=== PATIENT | female | born 1980 | race American Indian/Alaskan Native ===

== ENCOUNTER 2018-12-27 21:17 | Observation (INO) | payer MEDICAID ==
[2018-12-27] MEDS ORDERED: TYLENOL PO ONE (22:25)
[2018-12-27] MEDS ORDERED: TYLENOL ONE (22:29)
[2018-12-27 22:58] LABS: Basophils % (Auto) 0.2 % (0.0-1.8); Eosinophils # (Auto) 0.2 K/mm3 (0.0-0.4); Eosinophils % (Auto) 2.1 % (0.0-4.3); Hematocrit 33.2 % (30.3-42.9); Hemoglobin 11.1 gm/dl (10.1-14.3); Lymphocytes # (Auto) 2.2 K/mm3 (1.2-5.4); Lymphocytes % (Auto) 20.2 % (13.4-35.0); Mean Corpuscular HGB Conc 34 % (30-34); Mean Corpuscular Volume 87 fl (79-97); Monocytes # (Auto) 0.5 K/mm3 (0.0-0.8); Monocytes % (Auto) 4.7 % (0.0-7.3); Platelet Count 432 K/mm3 (140-440); Red Blood Count 3.81 M/mm3 (3.65-5.03)
[2018-12-27 23:18] LABS: BUN/Creatinine Ratio 7; Blood Urea Nitrogen 5 mg/dL (7-17); Calcium 9.5 mg/dL (8.4-10.2); Hemolysis Index 0
[2018-12-28] MEDS ORDERED: NACL 0.9% 500 ML 500 ML IV ONE (00:05)
[2018-12-28] MEDS ORDERED: NORMODYNE IV ONE (00:06)
[2018-12-28 00:31] LABS: Alanine Aminotransferase 418 units/L (7-56); Albumin 3.4 g/dL (3.9-5)
[2018-12-28 00:51] LABS: Bilirubin,Direct < 0.2 mg/dL (0-0.2)
[2018-12-28 00:57] LABS: Amorphous Crystals,Urine 1+; Bilirubin,Urine NEG (Negative); Blood,Urine SM (Negative); Color,Urine Yellow (Yellow); Mucus,Urine FEW /HPF; Protein,Urine <15 mg/dL mg/dL (Negative); Urobilinogen,Urine < 2.0 mg/dL (<2.0)
--- NOTE | 2018-12-28 01:40 | Ultrasound Report ---
FINAL REPORT EXAM: US ABDOMEN LIMITED HISTORY: abd pain, elevated LFTs TECHNIQUE: Real-time sonography was performed of the right upper quadrant and images are submitted f or interpretation. PRIORS: None. FINDINGS: There is diffuse increased echogenicity of the liver consistent fatty infiltration. There is echogeni c material in the gallbladder most consistent with stones and sludge. There is no gallbladder wall th ickening or pericholecystic fluid. There is no evidence of biliary dilatation, the common bile duct m easures 4 millimeters. The pancreas is not well seen. The visualized abdominal aorta appears normal. The right kidney appears normal in size, shape and echogenicity, measuring 10.5 x 5.3 x 6.1 cm. IMPRESSION: Gallbladder stones and sludge. No evidence of acute cholecystitis Diffuse fatty infiltration of the liver.
--- NOTE | 2018-12-28 02:00 | Emergency Department Report ---
HPI - General Chief Complaint: Headache Time Seen by Provider: 12/27/18 23:58 - HPI HPI: 48-year-old female presents to the emergency department with a complaint of a headache that has been going on since waking up this morning. It is associated with some nausea without vomiting. The patient is currently admitted with twin gestations at about 18 weeks. Her RECRUITING COORDINATOR is Dr. Ruperto Conde. The patient took some Tylenol for her symptoms without any relief. She denies any vision change, slurred speech or any neurological deficits. She has a past medical history of diabetes and hypertension that occurred during pregnancies. She also has a history of gallstones. She denies any vaginal bleeding or discharge, dysuria, fever. ED Past Medical Hx - Past Medical History Hx Hypertension: Yes (Only with ) Hx Diabetes: Yes (only with ) - Surgical History Additional Surgical History: x 2 - Social History Smoking Status: Current Some Day Smoker Substance Use Type: None - Medications Home Medications: Home Medications Medication Instructions Recorded Confirmed Last Taken Type Pnv95/Ferrous Fumarate/FA 1 each PO QDAY #90 tablet 05/01/14 05/23/14 05/20/14 Rx [ Vitamins] ALBUTEROL Inhaler (OR & NICU) 2 puff IH QID PRN #1 inhalation 05/23/14 Unknown Rx [ProAir HFA Inhaler] Azithromycin [Zithromax Z-BLAKE] 250 mg PO DAILY #6 tablet 05/23/14 Unknown Rx Fluticasone [Flonase] 1 spray NS QDAY #1 bottle 05/23/14 Unknown Rx ED Review of Systems ROS: Stated complaint: HEADACHE/18WKS Other details as noted in HPI Comment: All other systems reviewed and negative Constitutional: denies: chills, fever Eyes: denies: eye pain, vision change ENT: denies: ear pain, throat pain Respiratory: denies: cough, shortness of breath Cardiovascular: denies: chest pain, palpitations Gastrointestinal: abdominal pain, nausea. denies: vomiting Genitourinary: denies: dysuria, discharge Musculoskeletal: denies: back pain, arthralgia Skin: denies: rash, change in color Neurological: headache. denies: weakness, numbness Physical Exam - Physical Exam Vital Signs: Vital Signs 12/27/18 12/28/18 12/28/18 22:12 00:47 01:20 Temperature 99.1 F Pulse Rate 105 H 97 H Respiratory 16 15 16 Rate Blood Pressure 154/101 Blood Pressure 129/82 135/86 [Right] O2 Sat by Pulse 100 98 98 Oximetry Physical Exam: GENERAL: The patient is well-developed well-nourished. HEENT: Normocephalic. Atraumatic. Patient has moist mucous membranes. EYES: Extraocular motions are intact. Pupils are equal and reactive to light bilaterally. NECK: Supple. Trachea is midline. CHEST/LUNGS: Clear to auscultation. There is no respiratory distress noted. HEART/CARDIOVASCULAR: Regular. There is no tachycardia. There is no obvious murmur. ABDOMEN: Abdomen is soft, nontender. Patient has normal bowel sounds. Obese habitus. SKIN: Skin is warm and dry. NEURO: The patient is awake, alert, and oriented. The patient is cooperative. The patient has no focal neurologic deficits. The patient has normal speech. Cranial nerves II through XII grossly intact. MUSCULOSKELETAL: There is no tenderness or deformity. There is no limitation range of motion. There is no evidence of acute injury. ED Course Vital Signs 12/27/18 12/28/18 12/28/18 22:12 00:47 01:20 Temperature 99.1 F Pulse Rate 105 H 97 H Respiratory 16 15 16 Rate Blood Pressure 154/101 Blood Pressure 129/82 135/86 [Right] O2 Sat by Pulse 100 98 98 Oximetry - Consultations Consultation #1: 12/28/18 02:06 I spoke with the patient's RECRUITING COORDINATOR, Dr. Harshal Conde, regarding the patient's presentation for headache, her hypertension, and the elevated liver enzymes. He has asked the patient to be transferred to labor and delivery for further evaluation. ED Medical Decision Making - Lab Data Result diagrams: 12/27/18 22:39 12/27/18 22:39 - Radiology Data Radiology results: report reviewed Abdominal ultrasound shows gallstones and sludge in the gallbladder. There is fatty liver disease. - Medical Decision Making This patient is with twin gestations and presents with an acute headache since this morning. On physical examination she does not have any focal, motor or sensory deficits in her cranial nerves are intact. Patient's labs are mostly unremarkable except for elevated liver enzymes with AST of about 250 and ALT of 450. For this reason an abdominal ultrasound was done and came back showing some gallbladder sludge without cholecystitis and fatty liver disease. Patient does not have any thrombocytopenia, proteinuria, complaints of lower extremity edema. She was given a dose of labetalol and her blood pressure came down to a much more reasonable level. I spoke with the patient's RECRUITING COORDINATOR, Dr. Conde, who has requested the patient be transferred over to labor and delivery for further evaluation. - Differential Diagnosis tension headache, migraine, preeclampsia, help syndrome Critical Care Time: No Critical care attestation.: If time is entered above; I have spent that time in minutes in the direct care of this critically ill patient, excluding procedure time. ED Disposition Clinical Impression: Elevated liver enzymes Qualifiers: Weeks of gestation: 18 weeks Qualified Code(s): Z3A.18 - 18 weeks gestation of induced hypertension Qualifiers: Trimester: second trimester Qualified Code(s): O13.2 - Gestational [- induced] hypertension without significant proteinuria, second trimester Headache Qualifiers: Headache type: unspecified Headache chronicity pattern: unspecified pattern Intractability: not intractable Qualified Code(s): R51 - Headache Disposition: DC/TX-70 ANOTHER TYPE HLTHCARE Is pt being admited?: No Condition: Stable Instructions: (ED), Pre-eclampsia and Eclampsia (ED), Acute Headache (ED), Hypertension (ED) Referrals: RUPERTO CONDE MD [Staff Physician] - [facility] Time of Disposition: 02:00
[2018-12-28] MEDS ORDERED: TYLENOL PO PRN (03:39)
[2018-12-28] MEDS ORDERED: COLACE PO PRN (03:39)
[2018-12-28] MEDS: NORMODYNE PO SCH ×3 (04:58→22:17)
[2018-12-28] MEDS: LACTATED RINGERS 1,000 ML IV SCH ×3 (05:28→23:34)
[2018-12-28 06:59] LABS: Hepatitis C Virus Antibody Non-Reactive (NonReactive)
[2018-12-28] MEDS ORDERED: PRENATAL VITAMIN PO SCH (10:00)
[2018-12-28 14:18] LABS: Alanine Aminotransferase 364 units/L (7-56)
--- NOTE | 2018-12-28 16:59 | Short Stay Summary ---
Short Stay Documentation Date of service: 12/28/18 Narrative H&P: Pt is a 38-year-old female who presented to the emergency department with a complaint of a headache that has been going on since waking up this morning. It is associated with some nausea without vomiting. The patient is currently with twin gestations at about 18 weeks. Her PUMP OPERATOR [employer] is Dr. Ruperto Conde. She took some Tylenol for her symptoms without any relief. She denies any vision change, slurred speech or any neurological deficits. She has a past medical history of diabetes and hypertension that occurred during pregnancies. She also has a history of gallstones. She denies any vaginal bleeding or discharge, dysuria, fever. Initial BP was 154/101 which improved after IV hydralazine and PO Labetolol. However AST was 236 and ALT 418. - History Principal diagnosis: IUP @ 18 weeks; Twin gestation; Suspected PIH Past Medical History: other (gallstones) Past Surgical History: No surgical history Social history: no significant social history, - Allergies and Medications Current Medications: Allergies No Known Allergies Allergy (Verified 05/23/14 02:18) Home Medications Medication Instructions Recorded Confirmed Last Taken Type Pnv95/Ferrous Fumarate/FA 1 each PO QDAY #90 tablet 05/01/14 12/28/18 12/27/18 10:00 Rx [ Vitamins] ALBUTEROL Inhaler (OR & NICU) 2 puff IH QID PRN #1 inhalation 05/23/14 12/28/18 Unknown Rx [ProAir HFA Inhaler] Azithromycin [Zithromax Z-BLAKE] 250 mg PO DAILY #6 tablet 05/23/14 12/28/18 Unknown Rx Fluticasone [Flonase] 1 spray NS QDAY #1 bottle 05/23/14 12/28/18 Unknown Rx Active Medications Acetaminophen (Tylenol) 650 mg PO Q4H PRN PRN Reason: Pain MILD(1-3)/Fever >100.5/HASTINGS Docusate Sodium (Colace) 100 mg PO Q12H PRN PRN Reason: Constipation Lactated Ringer's (Lactated Ringers) 1,000 mls @ 125 mls/hr IV DIRECT KAREN Last Admin: 12/28/18 15:53 Dose: 125 mls/hr Documented by: Labetalol HCl (Normodyne) 200 mg PO BID [facility] Last Admin: 12/28/18 12:11 Dose: Not Given Documented by: Multivitamins/Iron/Calcium ( Vitamin) 1 each PO QDAY [facility] Last Admin: 12/28/18 13:01 Dose: 1 each Documented by: - Physical exam General appearance: no acute distress Integumentary: no rash HEENT: Atraumatic Lungs: Clear to auscultation Breasts: deferred Heart: Regular rate Gastrointestinal: normal Female Genitourinary: deferred Rectal Exam: deferred Extremities: No edema Neurological: Normal gait, Normal speech - Hospital course Hospital course: Unremarkable. Pt's BP improved on PO Labetolol 100mg BID and AST/ALT decreased to 201/364. Pt however signed out AMA. - Disposition Condition at discharge: Stable Disposition: DC-07 LEFT AGAINST MED ADVICE - Discharge Diagnoses (1) 18 weeks gestation of Status: Acute (2) Elevated liver enzymes Status: Acute (3) induced hypertension Status: Acute Qualifiers: Trimester: second trimester Qualified Code(s): O13.2 - Gestational [-induced] hypertension without significant proteinuria, second trimester Short Stay Discharge Plan Activity: no restrictions Diet: regular Follow up with: RUPERTO CONDE MD [Primary Care Provider] - [facility]
--- NOTE | 2018-12-28 23:55 | Ultrasound Report ---
FINAL REPORT EXAM: OB US > = 14 WKS SNGL FETUS HISTORY: PTL TECHNIQUE: Real-time sonography was performed of the gravid uterus and images are submitted for inte rpretation. PRIORS: None. FINDINGS: There is a twin in the uterus. The placenta is posterior and the os is clear. There is a no rmal amount of amniotic fluid. The cervix is long and closed measuring 3.9 cm. Twin A: Twin A is transverse with the head to the mother's left. The heart is beating at a rate of 160 beats per minute. estimated gestational age based on biometric measurements is 18 weeks 3 days for an estimated confinement of 05/28/2019. Twin B: Twin B is in a transverse presentation with the head to the mother's right. The heart is beatin g at a rate of 145 beats per minute. estimated gestational age based on biometric measurements is 18 weeks 5 days for an estimated date of confinement of 05/26/2019. IMPRESSION: Live twin as described above
--- NOTE | 2018-12-28 23:56 | Ultrasound Report ---
FINAL REPORT EXAM: US OB > = 14 WK FETUS ADD GEST HISTORY: Twin gestation TECHNIQUE: Real-time sonography was performed of the gravid uterus and images are submitted for inte rpretation. PRIORS: None. FINDINGS: There is a twin in the uterus. The placenta is posterior and the os is clear. There is a no rmal amount of amniotic fluid. The cervix is long and closed measuring 3.9 cm. Twin A: Twin A is transverse with the head to the mother's left. The heart is beating at a rate of 160 beats per minute. estimated gestational age based on biometric measurements is 18 weeks 3 days for an estimated confinement of 05/28/2019. Twin B: Twin B is in a transverse presentation with the head to the mother's right. The heart is beatin g at a rate of 145 beats per minute. estimated gestational age based on biometric measurements is 18 weeks 5 days for an estimated date of confinement of 05/26/2019. IMPRESSION: Live twin as described above
[2018-12-29 09:18] VITALS: BP 119/82
[2018-12-29] MEDS ORDERED: NORMODYNE PO SCH (10:00)
== END 2018-12-29 09:30 | disposition left against medical advice (07) ==
LOC: ED 21:17 → TRG 12-28 02:33 → OB 12-28 04:21
PROVIDERS: ADMIT Obstetrics & Gynecology; ATTEND Obstetrics & Gynecology
DX: O13.2 Gestational [pregnancy-induced] hypertension without significant proteinuria, second trimester (principal); O24.429 Gestational diabetes mellitus in childbirth, unspecified control; O26.892 Other specified pregnancy related conditions, second trimester; R51 Headache; O99.332 Smoking (tobacco) complicating pregnancy, second trimester; F17.200 Nicotine dependence, unspecified, uncomplicated; Z3A.18 18 weeks gestation of pregnancy
CPT/HCPCS: 36415; 76705; 76801; 76810; 80048; 80076; 81001; 82962; 84450; 84460; 84702; 85025; 86706; 86762; 86803; 87806; 96374; 99284; G0378; J7040; J7120; 76805

== ENCOUNTER 2019-02-05 17:22 | Outpatient (CLI) | payer MEDICAID ==
--- NOTE | 2019-02-06 12:15 | Ultrasound Report ---
Sonogram right upper quadrant: History: Gallstones. Findings: Aortic diameter 2.3 cm. Normal liver. No intrahepatic or extrahepatic duct dilatation. Common bile duct diameter 2 mm. Gallbladder wall thickness 2.1 mm. No definite calculi identified within the gallbladder. There is thick bile or sludge. No pericholecystic fluid. Right kidney 10.4 x 4.8 x 6.1 cm. Cortical thickness is 1.6 cm. Pancreas not visualized and obscured by bowel gas. Impression: Essentially negative sonogram right upper quadrant.
== END 2019-02-05 17:23 | disposition home or self-care (01) ==
LOC: US 17:22
PROVIDERS: ATTEND Obstetrics & Gynecology
DX: K80.32 Calculus of bile duct with acute cholangitis without obstruction (principal); I10 Essential (primary) hypertension
CPT/HCPCS: 76705

== ENCOUNTER 2019-03-10 17:10 | Outpatient (CLI) | payer MEDICAID ==
[2019-03-10] MEDS ORDERED: LACTATED RINGERS 500 ML IV ONE (18:14)
[2019-03-10 18:50] VITALS: BP 134/82
[2019-03-10 19:43] LABS: Bacteria,Urine 1+ /HPF (Negative); Bilirubin,Urine NEG (Negative); Blood,Urine SM (Negative); Color,Urine Yellow (Yellow); Mucus,Urine 2+ /HPF; Urobilinogen,Urine < 2.0 mg/dL (<2.0)
== END 2019-03-10 19:44 | disposition home or self-care (01) ==
LOC: TRG 17:10
PROVIDERS: ATTEND Obstetrics & Gynecology
DX: O47.03 False labor before 37 completed weeks of gestation, third trimester (principal); O99.513 Diseases of the respiratory system complicating pregnancy, third trimester; O13.3 Gestational [pregnancy-induced] hypertension without significant proteinuria, third trimester; O24.419 Gestational diabetes mellitus in pregnancy, unspecified control; J45.909 Unspecified asthma, uncomplicated; Z3A.28 28 weeks gestation of pregnancy
CPT/HCPCS: 59025; 81001

== ENCOUNTER 2019-04-18 16:20 | Outpatient (CLI) | payer MEDICAID ==
[2019-04-18] MEDS ORDERED: LACTATED RINGERS 1,000 ML ONE (18:12)
--- NOTE | 2019-04-18 18:43 | History and Physical Report ---
History of Present Illness Date of examination: 04/18/19 Date of admission: 04/18/2019 Chief complaint: Contractions at 33+6wks twin gestation. History of present illness: 33+6wks Twin gestation. x3 prior c/sections. Past History Past Medical History: asthma Past Surgical History: section (x3) Social history: no significant social history, , smoking - Obstetrical History Expected Date of Delivery: 05/31/19 Actual Gestation: 33 Week(s) 6 Day(s) : 8 Para: 5 Hx # Term Pregnancies: 5 Induced : 2 Medications and Allergies Allergies Allergy/AdvReac Type Severity Reaction Status Date / Time No Known Allergies Allergy Verified 05/23/14 02:18 Home Medications Medication Instructions Recorded Confirmed Last Taken Type Pnv95/Ferrous Fumarate/FA 1 each PO QDAY #90 tablet 05/01/14 12/28/18 12/27/18 10:00 Rx [ Vitamins] ALBUTEROL Inhaler (OR & NICU) 2 puff IH QID PRN #1 inhalation 05/23/14 12/28/18 Unknown Rx [ProAir HFA Inhaler] Azithromycin [Zithromax Z-BLAKE] 250 mg PO DAILY #6 tablet 05/23/14 12/28/18 Unknown Rx Fluticasone [Flonase] 1 spray NS QDAY #1 bottle 05/23/14 12/28/18 Unknown Rx Active Meds: Active Medications Lactated Ringer's (Lactated Ringers) 1,000 mls @ 125 mls/hr IV DIRECT KAREN - Vital Signs Vital signs: Vital Signs Pulse BP 104 H 130/83 04/18/19 17:21 04/18/19 17:21 Temp Pulse Resp BP Pulse Ox 97 F L 104 H 18 130/83 04/18/19 17:24 04/18/19 17:21 04/18/19 17:24 04/18/19 17:21 - Physical Exam Breasts: Positive: deferred Cardiovascular: Regular rate Lungs: Positive: Clear to auscultation Abdomen: Positive: distention Genitourinary (Female): Positive: normal external genitalia, normal perenium. Negative: perineal/vulvar lesions Vulva: both: normal Vagina: Positive: normal moisture. Negative: discharge Cervix: Negative: lesion, discharge Uterus: Positive: enlarged, other (Consisitent with twin gestation at 33+6wks.) Extremities: - Obstetrical FHR: category 1 Uterine Contraction Monitor Mode: External Cervical Dilatation: 1 Cervical Effacement Percentage: 80 station: 0 Uterine Contraction Frequency (min): 4 Uterine Contraction Pattern: Regular Uterine Contraction Intensity: Moderate Results All other labs normal. Assessment and Plan Spoke with C.MD Heraclio and he recommended MgSO4 x24 hrs if stable. If no progression with cervical change after MgSO4 to observe . MgSO4 is in addition to Celestone, IV Ampicillin, NPO. Urine and GBS cultures were ordered. Pediatricians notified. Dr. Pryor said he will see the patient in the morning. - Patient Problems (1) Twin gestation with eighth Current Visit: Yes Status: Acute (2) Current Visit: No Status: Acute Qualifiers: Weeks of gestation: 18 weeks Qualified Code(s): Z3A.18 - 18 weeks gestation of (3) uterine contractions in third trimester, antepartum Current Visit: Yes Status: Acute (4) Gestational diabetes mellitus Current Visit: Yes Status: Acute
[2019-04-18] MEDS ORDERED: LACTATED RINGERS 1,000 ML IV SCH (19:00)
[2019-04-18] MEDS ORDERED: AMPICILLIN/NS 2 GM/100 ML 2 GM/100 ML BAG IV ONE (19:19)
[2019-04-18 21:39] LABS: Basophils # (Auto) 0.1 K/mm3 (0.0-0.1); Basophils % (Auto) 0.6 % (0.0-1.8); Eosinophils # (Auto) 0.2 K/mm3 (0.0-0.4); Eosinophils % (Auto) 1.8 % (0.0-4.3); Hematocrit 32.1 % (30.3-42.9); Hemoglobin 10.4 gm/dl (10.1-14.3); Lymphocytes # (Auto) 2.4 K/mm3 (1.2-5.4); Lymphocytes % (Auto) 23.6 % (13.4-35.0); Mean Corpuscular HGB Conc 33 % (30-34); Mean Corpuscular Volume 85 fl (79-97); Monocytes # (Auto) 0.6 K/mm3 (0.0-0.8); Monocytes % (Auto) 5.9 % (0.0-7.3); Platelet Count 454 K/mm3 (140-440); Red Blood Count 3.76 M/mm3 (3.65-5.03); Red Cell Distribution Width 16.5 % (13.2-15.2)
[2019-04-18] MEDS ORDERED: MAGNESIUM SULFATE 4GM/100ML 4 GM/100 ML BAG IV ONE (21:54)
[2019-04-18 22:12] LABS: Alanine Aminotransferase 102 units/L (7-56); Albumin 3.2 g/dL (3.9-5); BUN/Creatinine Ratio 8; Blood Urea Nitrogen 6 mg/dL (7-17); Hemolysis Index 0
[2019-04-18] MEDS: CELESTONE SOLUSPAN IM SCH (22:28)
[2019-04-18] MEDS: MAGNESIUM SULFATE 40GM/1000ML 40 GM/1,000 ML BAG IV SCH (22:28)
[2019-04-18 23:06] LABS: Bilirubin,Urine NEG (Negative); Blood,Urine SM (Negative); Color,Urine Yellow (Yellow); Protein,Urine <15 mg/dL mg/dL (Negative); Urobilinogen,Urine < 2.0 mg/dL (<2.0); WBC,Urine < 1.0 /HPF (0.0-6.0)
--- NOTE | 2019-04-19 09:25 | Progress Note ---
Assessment and Plan Spoke with C.MD Heraclio 04/18/2019 and he recommended MgSO4 x24 hrs if stable: If no progression with cervical change after MgSO4 to observe . MgSO4 is in addition to Celestone, IV Ampicillin, NPO. Urine and GBS cultures were ordered. Pediatricians notified. Dr. Pryor said he will see the patient today. There have been no changes in the cervix. Contractions have tailed off. Mother is stable, even if anxious to go home. 2nd dose of steroids and 24 hrs of MgSO4 will be done at 2200HRS +/-. It will be reasonable to observe patient in the hospital after this. If all ok by tomorrow morning, barring countering recs from [facility] I will be ok with allowing patient to go home. - Patient Problems (1) Twin gestation with eighth Current Visit: Yes Status: Acute (2) Current Visit: No Status: Acute Qualifiers: Weeks of gestation: 18 weeks Qualified Code(s): Z3A.18 - 18 weeks gestation of (3) uterine contractions in third trimester, antepartum Current Visit: Yes Status: Acute (4) Gestational diabetes mellitus Current Visit: Yes Status: Acute Subjective - Subjective Date of service: 04/19/19 ( ) Principal diagnosis: Interval history: 34wks Twin gestation. x3 prior c/sections. Patient reports: movement normal, no new complaints, no loss of fluid, no vaginal bleeding, no contractions Objective - Vital Signs Vital Signs: Vital Signs - 12hr 04/18/19 04/18/19 04/18/19 22:03 22:08 22:13 Temperature Pulse Rate 103 H 106 H 110 H Blood Pressure 112/70 122/75 113/73 O2 Sat by Pulse 98 Oximetry 04/18/19 04/18/19 04/18/19 22:18 22:23 22:28 Temperature Pulse Rate 111 H 103 H 110 H Blood Pressure 99/57 99/59 101/54 O2 Sat by Pulse 98 97 98 Oximetry 04/18/19 04/18/19 04/18/19 22:30 22:33 22:34 Temperature 96.9 F L Pulse Rate 99 H 104 H Blood Pressure 112/52 O2 Sat by Pulse 97 Oximetry 04/18/19 04/18/19 04/19/19 22:38 23:35 02:24 Temperature Pulse Rate 96 H 103 H 95 H Blood Pressure 111/62 O2 Sat by Pulse 98 98 Oximetry 04/19/19 04/19/19 04/19/19 02:29 02:34 02:39 Temperature Pulse Rate 95 H 100 H 93 H Blood Pressure O2 Sat by Pulse 96 97 98 Oximetry 04/19/19 04/19/19 04/19/19 03:27 04:25 07:19 Temperature 98 F Pulse Rate 93 H 101 H Blood Pressure 117/68 O2 Sat by Pulse 93 Oximetry 04/19/19 04/19/19 04/19/19 07:20 07:25 08:11 Temperature Pulse Rate 104 H 100 H 97 H Blood Pressure 136/82 131/73 O2 Sat by Pulse 97 Oximetry 04/19/19 04/19/19 04/19/19 08:16 08:21 08:25 Temperature Pulse Rate 109 H 99 H 99 H Blood Pressure 113/71 O2 Sat by Pulse 94 98 Oximetry 04/19/19 04/19/19 04/19/19 08:26 08:31 08:36 Temperature Pulse Rate 99 H 98 H 114 H Blood Pressure O2 Sat by Pulse 98 98 97 Oximetry 04/19/19 04/19/19 04/19/19 08:41 08:46 08:49 Temperature Pulse Rate 108 H 101 H 110 H Blood Pressure O2 Sat by Pulse 99 98 89 Oximetry 04/19/19 04/19/19 04/19/19 08:51 08:56 09:01 Temperature Pulse Rate 116 H 115 H 104 H Blood Pressure O2 Sat by Pulse 100 100 98 Oximetry 04/19/19 04/19/19 04/19/19 09:06 09:07 09:11 Temperature Pulse Rate 105 H 115 H 121 H Blood Pressure O2 Sat by Pulse 100 90 98 Oximetry - Exam Breasts: deferred Cardiovascular: Regular rate Lungs: Clear to auscultation Abdomen: Present: soft Vulva: both: normal Uterus: Present: fundal height above umbilicus FHR: category 1 Cervical Dilatation: 1 (unchanged from yesterday) Cervical Effacement Percentage: 70 Uterine Contraction Pattern: Absent Extremities: normal - Labs Labs: Abnormal Labs 04/18/19 04/18/19 04/19/19 21:17 21:17 05:45 RDW 16.5 H Plt Count 454 H Sodium 132 L Chloride 96.5 L Carbon Dioxide 21 L BUN 6 L Glucose 63 L Magnesium 5.60 H AST 82 H ALT 102 H Alkaline Phosphatase 136 H Albumin 3.2 L Laboratory Results - last 24 hr 04/18/19 04/18/19 04/18/19 21:17 21:17 21:17 WBC 10.0 RBC 3.76 Hgb 10.4 Hct 32.1 MCV 85 MCH 28 MCHC 33 RDW 16.5 H Plt Count 454 H Lymph % (Auto) 23.6 [place] % (Auto) 5.9 Eos % (Auto) 1.8 Baso % (Auto) 0.6 Lymph # 2.4 [place] # 0.6 Eos # 0.2 Baso # 0.1 Seg Neutrophils % 68.1 Seg Neutrophils # 6.8 Sodium 132 L Potassium 4.5 Chloride 96.5 L Carbon Dioxide 21 L Anion Gap 19 BUN 6 L Creatinine 0.8 Estimated GFR > 60 BUN/Creatinine Ratio 8 Glucose 63 L POC Glucose Calcium 9.0 Magnesium Total Bilirubin 0.20 AST 82 H ALT 102 H Alkaline Phosphatase 136 H Total Protein 7.3 Albumin 3.2 L Albumin/Globulin Ratio 0.8 Urine Color Urine Turbidity Urine pH Ur Specific [place] Urine Protein Urine Glucose (UA) Urine Ketones Urine Blood Urine Nitrite Urine Bilirubin Urine Urobilinogen Ur Leukocyte Esterase Urine WBC (Auto) Urine RBC (Auto) U Epithel Cells (Auto) HIV 1&2 Antibody Rapid HIV P24 Antigen Blood Type A POSITIVE Antibody Screen Negative 04/18/19 04/18/19 04/19/19 21:17 22:30 03:47 WBC RBC Hgb Hct MCV MCH MCHC RDW Plt Count Lymph % (Auto) [place] % (Auto) Eos % (Auto) Baso % (Auto) Lymph # [place] # Eos # Baso # Seg Neutrophils % Seg Neutrophils # Sodium Potassium Chloride Carbon Dioxide Anion Gap BUN Creatinine Estimated GFR BUN/Creatinine Ratio Glucose POC Glucose 72 Calcium Magnesium Total Bilirubin AST ALT Alkaline Phosphatase Total Protein Albumin Albumin/Globulin Ratio Urine Color Yellow Urine Turbidity Clear Urine pH 7.0 Ur Specific [place] 1.008 Urine Protein <15 mg/dl Urine Glucose (UA) Neg Urine Ketones Tr Urine Blood Sm Urine Nitrite Neg Urine Bilirubin Neg Urine Urobilinogen < 2.0 Ur Leukocyte Esterase Neg Urine WBC (Auto) < 1.0 Urine RBC (Auto) 2.0 U Epithel Cells (Auto) 2.0 HIV 1&2 Antibody Rapid Non react HIV P24 Antigen Non react Blood Type Antibody Screen 04/19/19 05:45 WBC RBC Hgb Hct MCV MCH MCHC RDW Plt Count Lymph % (Auto) [place] % (Auto) Eos % (Auto) Baso % (Auto) Lymph # [place] # Eos # Baso # Seg Neutrophils % Seg Neutrophils # Sodium Potassium Chloride Carbon Dioxide Anion Gap BUN Creatinine Estimated GFR BUN/Creatinine Ratio Glucose POC Glucose Calcium Magnesium 5.60 H Total Bilirubin AST ALT Alkaline Phosphatase Total Protein Albumin Albumin/Globulin Ratio Urine Color Urine Turbidity Urine pH Ur Specific [place] Urine Protein Urine Glucose (UA) Urine Ketones Urine Blood Urine Nitrite Urine Bilirubin Urine Urobilinogen Ur Leukocyte Esterase Urine WBC (Auto) Urine RBC (Auto) U Epithel Cells (Auto) HIV 1&2 Antibody Rapid HIV P24 Antigen Blood Type Antibody Screen
[2019-04-19] MEDS ORDERED: PEPCID IV SCH (11:00)
[2019-04-19] MEDS: TYLENOL PO PRN (12:31)
--- NOTE | 2019-04-19 18:10 | Consultation ---
History of Present Illness Consult date: 04/19/19 Reason for consult: prematurity (33 week twin gestation with con tractions) Documentation - information: Height 5 ft 6 in Medications and Allergies Allergies Allergy/AdvReac Type Severity Reaction Status Date / Time No Known Allergies Allergy Verified 05/23/14 02:18 Home Medications Medication Instructions Recorded Confirmed Last Taken Type Pnv95/Ferrous Fumarate/FA 1 each PO QDAY #90 tablet 05/01/14 12/28/18 12/27/18 10:00 Rx [ Vitamins] ALBUTEROL Inhaler (OR & NICU) 2 puff IH QID PRN #1 inhalation 05/23/14 12/28/18 Unknown Rx [ProAir HFA Inhaler] Azithromycin [Zithromax Z-BLAKE] 250 mg PO DAILY #6 tablet 05/23/14 12/28/18 Unknown Rx Fluticasone [Flonase] 1 spray NS QDAY #1 bottle 05/23/14 12/28/18 Unknown Rx Active Meds: Active Medications Acetaminophen (Tylenol) 650 mg PO Q4H PRN PRN Reason: Pain, Mild (1-3) Last Admin: 04/19/19 12:31 Dose: 650 mg Documented by: Betamethasone Acet/Betameth SodPhos (Celestone Soluspan) 12 mg IM Q24HR KAREN Last Admin: 04/18/19 22:28 Dose: 12 mg Documented by: Famotidine (Pepcid) 20 mg IV BID KAREN Last Admin: 04/19/19 12:34 Dose: 20 mg Documented by: Lactated Ringer's (Lactated Ringers) 1,000 mls @ 125 mls/hr IV DIRECT KAREN Last Admin: 04/19/19 12:19 Dose: 75 mls/hr Documented by: Magnesium Sulfate (Magnesium Sulfate 40gm/1000ml) 40 gm in 1,000 mls @ 50 mls/hr IV DIRECT KAREN Last Admin: 04/18/19 22:28 Dose: 2 gm/hr, 50 mls/hr Documented by: Exam Vital Signs Pulse BP 104 H 130/83 04/18/19 17:21 04/18/19 17:21 Temp Pulse Resp BP Pulse Ox 98.8 F 92 H 18 125/58 99 04/19/19 16:25 04/19/19 18:04 04/19/19 16:25 04/19/19 17:25 04/19/19 18:04 Results - Laboratory Findings 04/18/19 21:17 04/18/19 21:17 Abnormal lab results 04/18/19 04/18/19 04/19/19 Range/Units 21:17 21:17 05:45 RDW 16.5 H (13.2-15.2) % Plt Count 454 H (140-440) K/mm3 Sodium 132 L (137-145) mmol/L Chloride 96.5 L (98-107) mmol/L Carbon Dioxide 21 L (22-30) mmol/L BUN 6 L (7-17) mg/dL Glucose 63 L (65-100) mg/dL POC Glucose (70-105) Magnesium 5.60 H (1.7-2.3) mg/dL AST 82 H (5-40) units/L ALT 102 H (7-56) units/L Alkaline Phosphatase 136 H (35-129) units/L Albumin 3.2 L (3.9-5) g/dL 04/19/19 04/19/19 04/19/19 Range/Units 10:47 12:30 16:01 RDW (13.2-15.2) % Plt Count (140-440) K/mm3 Sodium (137-145) mmol/L Chloride (98-107) mmol/L Carbon Dioxide (22-30) mmol/L BUN (7-17) mg/dL Glucose (65-100) mg/dL POC Glucose 165 H (70-105) Magnesium 6.10 H 6.20 H (1.7-2.3) mg/dL AST (5-40) units/L ALT (7-56) units/L Alkaline Phosphatase (35-129) units/L Albumin (3.9-5) g/dL Assessment and Plan Met with mother and discussed possible need for NICU admission after delivery. Babies need to be monitored for temperature regulation, feeding, jaundice and hypoglycemia. Mother demonstrated understanding of information presented and I asked her to call the NICU with questions. Plan: Agree with steroids Call NICU with questions Notify NICU when delivery is imminent
--- NOTE | 2019-04-19 18:13 | Consultation ---
History of Present Illness Consult date: 04/19/19 Requesting physician: SARA EVANS Reason for consult: contractions History of present illness: o As you are aware, this is a 38 year old para 4 at EGA= 33 weeks gestation who was admitted to [facility] with contractions and suspected labor. o At the time of my evaluation, the patient denied vaginal bleeding, leakage of fluid, fever or chills. o Patient also denied severe abdominal pain, but she did admit to intermittent (and increasing) low pelvic discomfort with movement. o Since admission, uterine tocodynametry has been significant for mild episodes of irritability and mild contractile activity at irregular intervals. The patient is currently taking Magnesium sulfate as an IV tocolytic. l PAST OB HISTORY: o See full report in patients chart o Previous CS x 3 l Physical Examination: l See hospital chart for details l General exam: WDWN, NAD. l Abdominal exam: soft, non-tender, non-distended, bowel sounds: normal. l NST reactive, no decelerations, (+) irregular uterine activity l Cervico-vaginal exam: Fingertip dilation. See notes in patient's chart. ULTRASOUND: See notes in chart. Past History Past Medical History: asthma Past Surgical History: section (x3) - Obstetrical History : 8 Medications and Allergies Allergies Allergy/AdvReac Type Severity Reaction Status Date / Time No Known Allergies Allergy Verified 05/23/14 02:18 Home Medications Medication Instructions Recorded Confirmed Last Taken Type Pnv95/Ferrous Fumarate/FA 1 each PO QDAY #90 tablet 05/01/14 12/28/18 12/27/18 10:00 Rx [ Vitamins] ALBUTEROL Inhaler (OR & NICU) 2 puff IH QID PRN #1 inhalation 05/23/14 12/28/18 Unknown Rx [ProAir HFA Inhaler] Azithromycin [Zithromax Z-BLAKE] 250 mg PO DAILY #6 tablet 05/23/14 12/28/18 Unknown Rx Fluticasone [Flonase] 1 spray NS QDAY #1 bottle 05/23/14 12/28/18 Unknown Rx Active Meds: Active Medications Acetaminophen (Tylenol) 650 mg PO Q4H PRN PRN Reason: Pain, Mild (1-3) Last Admin: 04/19/19 12:31 Dose: 650 mg Documented by: Betamethasone Acet/Betameth SodPhos (Celestone Soluspan) 12 mg IM Q24HR KAREN Last Admin: 04/18/19 22:28 Dose: 12 mg Documented by: Famotidine (Pepcid) 20 mg IV BID [facility] Last Admin: 04/19/19 12:34 Dose: 20 mg Documented by: Lactated Ringer's (Lactated Ringers) 1,000 mls @ 125 mls/hr IV DIRECT KAREN Last Admin: 04/19/19 12:19 Dose: 75 mls/hr Documented by: Magnesium Sulfate (Magnesium Sulfate 40gm/1000ml) 40 gm in 1,000 mls @ 50 mls/hr IV DIRECT KAREN Last Admin: 04/18/19 22:28 Dose: 2 gm/hr, 50 mls/hr Documented by: - Vital Signs Vital signs: Vital Signs Pulse BP 104 H 130/83 04/18/19 17:21 04/18/19 17:21 Temp Pulse Resp BP Pulse Ox 98.8 F 91 H 18 125/58 100 04/19/19 16:25 04/19/19 18:09 04/19/19 16:25 04/19/19 17:25 04/19/19 18:09 Results Result Diagrams: 04/18/19 21:17 04/18/19 21:17 Abnormal lab results 04/18/19 04/18/19 04/19/19 Range/Units 21:17 21:17 05:45 RDW 16.5 H (13.2-15.2) % Plt Count 454 H (140-440) K/mm3 Sodium 132 L (137-145) mmol/L Chloride 96.5 L (98-107) mmol/L Carbon Dioxide 21 L (22-30) mmol/L BUN 6 L (7-17) mg/dL Glucose 63 L (65-100) mg/dL POC Glucose (70-105) Magnesium 5.60 H (1.7-2.3) mg/dL AST 82 H (5-40) units/L ALT 102 H (7-56) units/L Alkaline Phosphatase 136 H (35-129) units/L Albumin 3.2 L (3.9-5) g/dL 04/19/19 04/19/19 04/19/19 Range/Units 10:47 12:30 16:01 RDW (13.2-15.2) % Plt Count (140-440) K/mm3 Sodium (137-145) mmol/L Chloride (98-107) mmol/L Carbon Dioxide (22-30) mmol/L BUN (7-17) mg/dL Glucose (65-100) mg/dL POC Glucose 165 H (70-105) Magnesium 6.10 H 6.20 H (1.7-2.3) mg/dL AST (5-40) units/L ALT (7-56) units/L Alkaline Phosphatase (35-129) units/L Albumin (3.9-5) g/dL All other labs normal. Assessment and Plan ASSESSMENT: * Twin gestation at 34 weeks gestation admitted due cervical shortening, dilation and symptoms of labor. * Currently, an analysis of this patients symptoms, tocodynametry, recent history place her at increased risk for spontaneous in the near future. RECOMMENDATIONS: * I have explained to the patient that in some pregnancies cervical change and contractions can occasionally occur 1-2 weeks prior to actual delivery. * We are in agreement with close observation to rule out progressive contractions or early labor. * Neonatology aware. * Given the current gestational age we recommend steroids to enhance lung maturity. * We would give magnesium sulfate to obtain steroids for lung maturation and neuroprotection x 24 hours. * If patient continues to have painful contractions, changes in cervix or a change in FHR tracing or biophysical parameters; we would recommend delivery by repeat CS. * Given the current gestational age, estimated weight and progressive nature of contractions I would exercise caution with additional (aggressive) tocolysis given the narrow margin between risk and benefit for these medications at this gestational age particularly with the history of three previous CS.. * Currently there is insufficient evidence to support aggressive intravenous tocolysis in this patient after completion of steroids. * Conceivably at this patients symptoms improve she may become a candidate for discharge an outpatient if she has resolution of contractions AND no cervical changes. * Kindly contact [facility] as needed if her clinical status changes. Thank you for allowing us to participate in the care of this patient. We look forward to the opportunity to assist in her continued management. If you have any questions, we may be reached at [phone]. Chukwomar Pryor MD, FACOG
[2019-04-19] MEDS: MAGNESIUM SULFATE 40GM/1000ML 40 GM/1,000 ML BAG IV SCH (18:44)
[2019-04-19] MEDS: CELESTONE SOLUSPAN IM SCH (22:12)
[2019-04-20] MEDS: TYLENOL PO PRN (01:02)
--- NOTE | 2019-04-20 04:54 | Progress Note ---
Assessment and Plan Spoke with C.MD Heraclio 04/18/2019 and he recommended MgSO4 x24 hrs if stable: If no progression with cervical change after MgSO4 to observe . MgSO4 is in addition to Celestone, IV Ampicillin, NPO. Urine and GBS cultures were ordered. Pediatricians notified. Dr. Pryor saw patient yesterday. [facility] RECOMMENDATIONS: * I have explained to the patient that in some pregnancies cervical change and contractions can occasionally occur 1-2 weeks prior to actual delivery. * We are in agreement with close observation to rule out progressive contractions or early labor. * Neonatology aware. * Given the current gestational age we recommend steroids to enhance lung maturity. * We would give magnesium sulfate to obtain steroids for lung maturation and neuroprotection x 24 hours. * If patient continues to have painful contractions, changes in cervix or a change in FHR tracing or biophysical parameters; we would recommend delivery by repeat CS. * Given the current gestational age, estimated weight and progressive nature of contractions I would exercise caution with additional (aggressive) tocolysis given the narrow margin between risk and benefit for these medications at this gestational age particularly with the history of three previous CS.. * Currently there is insufficient evidence to support aggressive intravenous tocolysis in this patient after completion of steroids. * Conceivably at this patients symptoms improve she may become a candidate for discharge an outpatient if she has resolution of contractions AND no cervical changes. * Kindly contact [facility] as needed if her clinical status changes. Plan: When patient has fully slept and woken, a vaginal exam will be done and if no changes to the cervix, may return home and outpatient management. - Patient Problems (1) Twin gestation with eighth Current Visit: Yes Status: Acute (2) Current Visit: No Status: Acute Qualifiers: Weeks of gestation: 18 weeks Qualified Code(s): Z3A.18 - 18 weeks gestation of (3) uterine contractions in third trimester, antepartum Current Visit: Yes Status: Acute (4) Gestational diabetes mellitus Current Visit: Yes Status: Acute Subjective Date of service: 04/20/19 Principal diagnosis: Objective - Constitutional Vitals: Vital Signs - 12hr 04/19/19 04/19/19 04/19/19 17:24 17:25 17:29 Temperature 98.2 F Pulse Rate 107 H 96 H 91 H Respiratory 18 Rate Blood Pressure 125/58 O2 Sat by Pulse 100 100 Oximetry 04/19/19 04/19/19 04/19/19 17:34 17:39 17:44 Temperature Pulse Rate 94 H 93 H 95 H Respiratory Rate Blood Pressure O2 Sat by Pulse 100 100 100 Oximetry 04/19/19 04/19/19 04/19/19 17:49 17:54 17:59 Temperature Pulse Rate 96 H 90 92 H Respiratory Rate Blood Pressure O2 Sat by Pulse 100 100 100 Oximetry 04/19/19 04/19/19 04/19/19 18:01 18:04 18:09 Temperature Pulse Rate 98 H 92 H 91 H Respiratory Rate Blood Pressure O2 Sat by Pulse 92 99 100 Oximetry 04/19/19 04/19/19 04/19/19 18:25 18:36 18:46 Temperature 98.6 F Pulse Rate 98 H 99 H Respiratory 20 Rate Blood Pressure 121/76 O2 Sat by Pulse 99 Oximetry 04/19/19 04/19/19 04/19/19 18:51 18:56 19:01 Temperature Pulse Rate 101 H 100 H 99 H Respiratory Rate Blood Pressure O2 Sat by Pulse 98 97 99 Oximetry 04/19/19 04/19/19 04/19/19 19:06 19:11 19:14 Temperature Pulse Rate 101 H 105 H 100 H Respiratory Rate Blood Pressure O2 Sat by Pulse 98 99 93 Oximetry 04/19/19 04/19/19 04/19/19 19:16 19:21 19:25 Temperature Pulse Rate 95 H 94 H 96 H Respiratory Rate Blood Pressure 122/58 O2 Sat by Pulse 99 98 Oximetry 04/19/19 04/19/19 04/19/19 19:26 19:31 19:36 Temperature Pulse Rate 94 H 95 H 102 H Respiratory Rate Blood Pressure O2 Sat by Pulse 100 100 100 Oximetry 04/19/19 04/19/19 04/19/19 19:41 19:46 19:51 Temperature Pulse Rate 102 H 105 H 102 H Respiratory Rate Blood Pressure O2 Sat by Pulse 100 100 100 Oximetry 04/19/19 04/19/19 04/19/19 19:56 20:01 20:06 Temperature Pulse Rate 96 H 101 H 104 H Respiratory Rate Blood Pressure O2 Sat by Pulse 100 100 100 Oximetry 04/19/19 04/19/19 04/19/19 20:11 20:16 20:17 Temperature Pulse Rate 107 H 99 H 99 H Respiratory Rate Blood Pressure O2 Sat by Pulse 100 100 69 L Oximetry 04/19/19 04/19/19 04/19/19 20:21 20:26 20:31 Temperature Pulse Rate 94 H 92 H 99 H Respiratory Rate Blood Pressure 123/80 O2 Sat by Pulse 100 100 100 Oximetry 04/19/19 04/19/19 04/19/19 20:36 20:40 20:41 Temperature Pulse Rate 99 H 93 H 97 H Respiratory Rate Blood Pressure 128/85 O2 Sat by Pulse 100 100 Oximetry 04/19/19 04/19/19 04/19/19 20:45 20:46 21:25 Temperature Pulse Rate 100 H 100 H 95 H Respiratory Rate Blood Pressure 119/68 O2 Sat by Pulse 79 L 77 L Oximetry 04/19/19 04/20/19 04/20/19 22:25 00:39 00:51 Temperature Pulse Rate 103 H 95 H 97 H Respiratory Rate Blood Pressure 119/78 126/72 O2 Sat by Pulse 100 Oximetry General appearance: Present: no acute distress - EENT Eyes: PERRL - Respiratory Respiratory effort: normal - Breasts Breasts: deferred - Gastrointestinal General gastrointestinal: Present: soft - Genitourinary Female genitourinary: deferred - Labs CBC & Chem 7: 04/18/19 21:17 04/18/19 21:17 Labs: Abnormal lab results 04/19/19 04/19/19 04/19/19 Range/Units 05:45 10:47 12:30 POC Glucose 165 H (70-105) Magnesium 5.60 H 6.10 H (1.7-2.3) mg/dL 04/19/19 04/19/19 04/19/19 Range/Units 16:01 19:00 22:14 POC Glucose 164 H 168 H (70-105) Magnesium 6.20 H (1.7-2.3) mg/dL 04/19/19 Range/Units 22:34 POC Glucose (70-105) Magnesium 5.40 H (1.7-2.3) mg/dL Medications & Allergies - Medications Allergies/Adverse Reactions: Allergies No Known Allergies Allergy (Verified 05/23/14 02:18) Home Medications: Home Medications Medication Instructions Recorded Confirmed Last Taken Type Pnv95/Ferrous Fumarate/FA 1 each PO QDAY #90 tablet 05/01/14 12/28/1812/27/19 10:00 Rx [ Vitamins] ALBUTEROL Inhaler (OR & NICU) 2 puff IH QID PRN #1 inhalation 05/23/14 12/28/18 Unknown Rx [ProAir HFA Inhaler] Azithromycin [Zithromax Z-BLAKE] 250 mg PO DAILY #6 tablet 05/23/14 12/28/18 Unknown Rx Fluticasone [Flonase] 1 spray NS QDAY #1 bottle 05/23/14 12/28/18 Unknown Rx Active Medications: Generic Name Dose Route Start Last Admin Trade Name Freq PRN Reason Stop Dose Admin Acetaminophen 650 mg 04/19/19 10:14 04/20/19 01:02 Tylenol PO 650 mg Q4H PRN Administration Pain, Mild (1-3) Betamethasone Acet/Betameth SodPhos 12 mg 04/18/19 20:00 04/19/19 22:12 Celestone Soluspan IM 12 mg Q24HR KAREN Administration Famotidine 20 mg 04/19/19 11:00 04/19/19 12:34 Pepcid IV 20 mg BID KAREN Administration Lactated Ringer's 1,000 mls @ 125 mls/hr 04/18/19 19:00 04/19/19 12:19 Lactated Ringers IV 75 mls/hr DIRECT KAREN Administration
[2019-04-20 09:45] VITALS: BP 126/64
== END 2019-04-20 10:25 | disposition home or self-care (01) ==
LOC: TRG 16:20 → LD 17:11 → TRG 04-20 10:25
PROVIDERS: ATTEND Obstetrics & Gynecology
DX: O62.9 Abnormality of forces of labor, unspecified (principal); O24.419 Gestational diabetes mellitus in pregnancy, unspecified control; O30.003 Twin pregnancy, unspecified number of placenta and unspecified number of amniotic sacs, third trimester; O99.513 Diseases of the respiratory system complicating pregnancy, third trimester; J45.909 Unspecified asthma, uncomplicated; O09.523 Supervision of elderly multigravida, third trimester; Z3A.33 33 weeks gestation of pregnancy
CPT/HCPCS: 36415; 80053; 81001; 82962; 83735; 85025; 86592; 86850; 86900; 86901; 87086; 87116; 87806; 96361; 96365; 96366; 96372; J0290; J0702; J3475; J7120

== ENCOUNTER 2019-04-23 17:19 | Inpatient (IN) | payer MEDICAID ==
[2019-04-23] MEDS ORDERED: PEPCID IV ONE (18:02)
[2019-04-23] MEDS ORDERED: REGLAN IV ONE (18:02)
[2019-04-23] MEDS ORDERED: BICITRA PO ONE (18:02)
--- NOTE | 2019-04-23 18:04 | History and Physical Report ---
History of Present Illness Date of examination: 04/23/19 Date of admission: 04/23/19 17:19 Chief complaint: Delivery by C Section History of present illness: Pt is a 38yo BF EDC 05/31/19; EGA 34 4/7 weeks Twin gestation (mono/Di) presents from [facility] for delivery due to Gestational hypertension with superimposed preeclampsia. She received care at [facility] since 18 weeks and co-managed by [facility] . records are available but GBS is unknown. Past History Past Medical History: liver disease, other (AMA; GDM; Morbid obesity) Past Surgical History: section Social history: no significant social history, - Obstetrical History Expected Date of Delivery: 05/31/19 Actual Gestation: 34 Week(s) 4 Day(s) : 8 Medications and Allergies Allergies Allergy/AdvReac Type Severity Reaction Status Date / Time No Known Allergies Allergy Verified 05/23/14 02:18 Home Medications Medication Instructions Recorded Confirmed Last Taken Type Pnv95/Ferrous Fumarate/FA 1 each PO QDAY #90 tablet 05/01/14 12/28/18 12/27/18 10:00 Rx [ Vitamins] ALBUTEROL Inhaler (OR & NICU) 2 puff IH QID PRN #1 inhalation 05/23/14 12/28/18 Unknown Rx [ProAir HFA Inhaler] Azithromycin [Zithromax Z-BLAKE] 250 mg PO DAILY #6 tablet 05/23/14 12/28/18 Unkno wn Rx Fluticasone [Flonase] 1 spray NS QDAY #1 bottle 05/23/14 12/28/18 Unknown Rx Review of Systems All systems: negative - Physical Exam Breasts: Positive: deferred Cardiovascular: Regular rate Lungs: Positive: Clear to auscultation Abdomen: Positive: normal appearance Genitourinary (Female): Positive: normal external genitalia Uterus: Positive: enlarged Extremities: Positive: normal - Obstetrical FHR: category 1 Results Result Diagrams: 04/23/19 20:08 04/23/19 20:08 All other labs normal. Ultrasound: report reviewed Assessment and Plan - Patient Problems (1) 34 weeks gestation of Onset Date: 04/23/19 Current Visit: Yes Status: Acute Plan to address problem: A: IUP @ 34 4/7 weeks Twin gestation (Harding/Di) induced hypertension Elevated LFT's Gestational Diabetes Mellitus Previous C Section x 3 P: Admit to L&D for Repeat C Section per [facility] Monitor BS's Obtain PIH labs, Hgb A1c and Bile salts (2) Twin gestation with eighth Onset Date: 04/23/19 Current Visit: Yes Status: Acute (3) Elevated liver enzymes Onset Date: 04/23/19 Current Visit: Yes Status: Chronic (4) Gestational diabetes mellitus Onset Date: 04/23/19 Current Visit: Yes Status: Chronic Qualifiers: Gestational diabetes mellitus control: diet-controlled Trimester: third trimester Qualified Code(s): O24.410 - Gestational diabetes mellitus in , diet controlled (5) induced hypertension Onset Date: 04/23/19 Current Visit: Yes Status: Acute Qualifiers: Trimester: third trimester Qualified Code(s): O13.3 - Gestational [-induced] hypertension without significant proteinuria, third trimester (6) Previous section Onset Date: 04/23/19 Current Visit: Yes Status: Chronic
[2019-04-23] MEDS ORDERED: LACTATED RINGERS 1,000 ML IV SCH (19:00)
[2019-04-23 19:02] LABS: Bilirubin,Urine NEG (Negative); Blood,Urine SM (Negative); Color,Urine Yellow (Yellow); Protein,Urine <15 mg/dL mg/dL (Negative); Urobilinogen,Urine < 2.0 mg/dL (<2.0)
[2019-04-23 20:31] LABS: Basophils # (Auto) 0.1 K/mm3 (0.0-0.1); Basophils % (Auto) 0.5 % (0.0-1.8); Eosinophils # (Auto) 0.3 K/mm3 (0.0-0.4); Eosinophils % (Auto) 2.2 % (0.0-4.3); Hematocrit 31.6 % (30.3-42.9); Hemoglobin 10.1 gm/dl (10.1-14.3); Lymphocytes # (Auto) 3.3 K/mm3 (1.2-5.4); Lymphocytes % (Auto) 29.4 % (13.4-35.0); Mean Corpuscular HGB Conc 32 % (30-34); Mean Corpuscular Volume 84 fl (79-97); Monocytes # (Auto) 0.5 K/mm3 (0.0-0.8); Monocytes % (Auto) 4.8 % (0.0-7.3); Platelet Count 531 K/mm3 (140-440); Red Blood Count 3.76 M/mm3 (3.65-5.03); Red Cell Distribution Width 16.6 % (13.2-15.2)
--- NOTE | 2019-04-23 20:32 | Anesthesia Consultation ---
Anesthesia Consult and Med Hx Date of service: 04/23/19 - Airway Anesthetic Teeth Evaluation: Good ROM Head & Neck: Adequate Mental/Hyoid Distance: Adequate Mallampati Class: Class II - Pulmonary Exam CTA: Yes - Cardiac Exam Cardiac Exam: RRR - Pre-Operative Health Status ASA Pre-Surgery Classification: ASA2 Proposed Anesthetic Plan: Spinal - Pulmonary Hx Asthma: Yes COPD: No Hx Pneumonia: No - Cardiovascular System Hx Hypertension: Yes - Central Nervous System Hx Seizures: No Hx Psychiatric Problems: No - Endocrine Hx Renal Disease: No Hx End Stage Renal Disease: No Hx Hypothyroidism: No Hx Hyperthyroidism: No - Hematic Hx Anemia: No Hx Sickle Cell Disease: No - Other Systems Hx Alcohol Use: No
[2019-04-23] MEDS ORDERED: NARCAN 0.4 MG/1 ML IV PRN ×2 (20:33→22:26)
[2019-04-23] MEDS ORDERED: MORPHINE IV PRN (20:33)
[2019-04-23] MEDS ORDERED: PHENERGAN PO PRN (20:33)
[2019-04-23] MEDS ORDERED: PHENERGAN PR PRN (20:33)
[2019-04-23] MEDS ORDERED: ZOFRAN IV PRN (20:33)
--- NOTE | 2019-04-23 20:33 | Anesthesia Day of Surgery ---
Anesthesia Day of Surgery - Day of Surgery Patient Examined: Yes Patient H&P Reviewed: Yes Patient is NPO: Yes Soy's Test: N/A
[2019-04-23 20:56] LABS: Alanine Aminotransferase 119 units/L (7-56); Albumin 3.2 g/dL (3.9-5); BUN/Creatinine Ratio 13; Blood Urea Nitrogen 12 mg/dL (7-17); Hemolysis Index 0
[2019-04-23 20:57] LABS: Alanine Aminotransferase 117 units/L (7-56)
[2019-04-23] MEDS: ANCEF/NS 1 GM/50 ML 1 GM/50 ML BAG IV SCH (21:00)
[2019-04-23] MEDS ORDERED: fentaNYL-BUPIV 2 MCG/ML-0.125% 200 MCG/100 ML BAG EPIDURAL SCH (21:00)
[2019-04-23] MEDS ORDERED: SODIUM CHLORIDE FLUSH SYRINGE 10 ML IV NR ×2 (21:00→23:00)
[2019-04-23] MEDS ORDERED: SUBLIMAZE ONE (21:11)
[2019-04-23] MEDS ORDERED: ZOFRAN ONE ×2 (21:11)
[2019-04-23] MEDS ORDERED: PITOCin/NS 20 UNIT/1000ML DRIP 20,000 MILLIUNITS/1,000 ML BAG IV ONE (21:26)
[2019-04-23] MEDS ORDERED: BICITRA ONE (21:26)
[2019-04-23] MEDS ORDERED: DILAUDID ONE (22:24)
[2019-04-23] MEDS ORDERED: MILK OF MAGNESIA PO PRN (22:26)
[2019-04-23] MEDS ORDERED: IBUPROFEN PO PRN (22:26)
[2019-04-23] MEDS ORDERED: MYLICON PO PRN (22:26)
[2019-04-23] MEDS ORDERED: SENOKOT PO PRN (22:26)
[2019-04-23] MEDS ORDERED: TUCKS PAD TP PRN (22:26)
[2019-04-23] MEDS ORDERED: TORADOL IV PRN (22:26)
[2019-04-23] MEDS ORDERED: TYLENOL PO PRN (22:26)
[2019-04-23] MEDS ORDERED: D50W (25GM) Syringe IV PRN (22:26)
[2019-04-23] MEDS ORDERED: LANSINOH TP PRN (22:26)
--- NOTE | 2019-04-23 22:44 | Post Anesthesia Evaluation ---
- Post Anesthesia Evaluation Patient Participated: Yes Airway Patent: Yes Stable Respiratory Function: Yes Nausea/Vomiting: No Temp > 96.8F: Yes Pain Manageable: Yes Adequeate Hydration: Yes Anesthesia Complications: No Block Receding Appropriately: Yes Patient on Ventilator: No
--- NOTE | 2019-04-23 22:51 | Operative Report ---
Operative Report Operative Report: Date of procedure: 04/23/2019 Pre-operative diagnosis: 1. Intrauterine at 34-4/7 weeks 2. Twin gestation (Bertie/Di) 3. -induced hypertension 4. Elevated liver enzymes 5. Gestational diabetes mellitus 6. Previous 3 Post-operative diagnosis: Same Procedure name(s): Repeat low transverse section Surgeon: Ruperto Conde MD Railroad Operating Engineer: None Anesthesia: Spinal anesthesia EBL: 500 mL Findings: Twin A 2379 gram female infant Apgars 8 at 1 minute 9 at 5 minutes. Clear amniotic fluid. Nuchal cord 1. Twin B 2015 gram female infant Apgars 8 at 1 minute 9 at 5 minutes. Clear amniotic fluid. Normal uterus. Normal tubes and ovaries bilaterally. Procedure: After the patient was prepped and draped in usual sterile fashion, and after satisfactory level of epidural anesthesia was obtained, the skin knife was used to make a transverse skin incision through the previous skin scars. The incision was excised down to layer of the fascia, which was nicked in the midline and extended laterally using the Bovie cautery. The rectus muscles were dissected off the rectus fascia both superiorly and inferiorly. The rectus bellies in the midline, and the peritoneum was entered under direct visualization. The peritoneal incision was extended superiorly and inferiorly. A bladder flap was created and the bladder blade was then placed. The uterus was scored in a curvilinear linear fashion, entered in the midline revealing clear amniotic fluid. Infant A's head was delivered onto the surgical field with the aid of a vacuum, and the oropharynx and nasopharynx were bulb suctioned. Nuchal cord 1 easily reduced. The rest of the 's body was delivered, cord was doubly clamped and cut and the was handed to the waiting respiratory team. Amniotomy was performed on sac B, and Infant B's head was delivered on the surgical field with the aid of a vacuum, and the oropharynx and nasopharynx were bulb suctioned. The placentas were manually removed from the uterus and sent to pathology, and the uterus removed from its normal anatomical position. After gentle uterine lavage, the incision was inspected and found to be without extensions. It was then closed in 2 layers using 0 Vicryl suture in a running interlocking fashion, the second layer imbricating the first. After good hemostasis was achieved, copious amounts or irrigation was performed, and the gutters were suctioned free of blood and blood clots. The Tisseel sealant was sprayed across the uterine incision. The uterus was then returned to its normal anatomical position, and after excellent hemostasis assured, the peritoneum was re-approximated using 3-0 Vicryl suture in a running interlocking fashion, and then the rectus muscles were re-approximated using 3-0 Vicryl suture in a [id number] configuration. The fascia was then re-approximated using 0 Vicryl suture in running interlocking fashion. The subcutaneous layer was made hemostatic using Bovie cautery, the Tisseel sealant was sprayed across the fascial incision and the skin edges re-approximated using 4-0 Vicryl suture in a sub-cuticular fashion. Patient tolerated the procedure well was transported to recovery in stable condition.
[2019-04-23] MEDS ORDERED: PITOCin/NS 20 UNIT/1000ML DRIP 20 UNITS/1,000 ML BAG IV SCH (23:00)
[2019-04-23] MEDS ORDERED: D5LR 1,000 ML IV SCH (23:00)
[2019-04-23] MEDS ORDERED: NORMODYNE PO SCH (23:00)
[2019-04-23] MEDS: DILAUDID IV PRN (23:33)
[2019-04-24] MEDS: DILAUDID IV PRN (00:02)
[2019-04-24] MEDS ORDERED: M-M-R II VACCINE SUB-Q ONE (06:00)
[2019-04-24] MEDS ORDERED: BOOSTRIX IM ONE (06:00)
[2019-04-24] MEDS: HumuLIN R SUB-Q SCH ×4 (07:30→22:32)
[2019-04-24] MEDS: ANCEF/NS 1 GM/50 ML 1 GM/50 ML BAG IV SCH (08:30)
--- NOTE | 2019-04-24 09:32 | Progress Note ---
Assessment and Plan - Patient Problems (1) 34 weeks gestation of Onset Date: 04/23/19 Current Visit: Yes Status: Resolved (2) Twin gestation with eighth Onset Date: 04/23/19 Current Visit: Yes Status: Resolved (3) Elevated liver enzymes Onset Date: 04/23/19 Current Visit: Yes Status: Chronic (4) Gestational diabetes mellitus Onset Date: 04/23/19 Current Visit: Yes Status: Chronic Qualifiers: Gestational diabetes mellitus control: diet-controlled Trimester: third trimester Qualified Code(s): O24.410 - Gestational diabetes mellitus in , diet controlled (5) induced hypertension Onset Date: 04/23/19 Current Visit: Yes Status: Resolved Qualifiers: Trimester: third trimester Qualified Code(s): O13.3 - Gestational [-induced] hypertension without significant proteinuria, third trimester (6) Previous section Onset Date: 04/23/19 Current Visit: Yes Status: Resolved (7) Status post Onset Date: 04/24/19 Current Visit: Yes Status: Resolved Plan to address problem: A: S/P Repeat C Section - POD #1 Doing well Asymptomatic anemia - stable PIH - improved GDM - stable Elevated LFT's - improving P: Continue RPOC Repeat H/H, AST, ALT tomorrow Anticipate discharge in 24-48hrs (8) Acute blood loss anemia Onset Date: 04/24/19 Current Visit: Yes Status: Resolved Subjective - Subjective Date of service: 04/24/19 Principal diagnosis: s/p Repeat C Section - POD #1 Interval history: Pt is feeling well without complaints. She is tolerating a reg diet without nausea or vomiting, ambulating and voiding without difficulty. Patient reports: appetite normal, voiding normally, pain well controlled, flatus, ambulating normally, no dizzy ambulation, no nauseated [place]: doing well, in NICU Objective - Vital Signs Latest vital signs: Vital Signs Temp Pulse Resp BP BP Pulse Ox 04/24/19 07:42 97.3 F L 91 H 16 107/65 98 04/24/19 05:11 97.7 F 95 H 20 96/40 98 04/24/19 00:32 97.5 F L 82 20 112/82 100 04/23/19 23:45 71 14 147/78 100 04/23/19 23:30 76 13 132/72 97 04/23/19 23:15 80 13 120/70 100 04/23/19 22:55 74 12 125/73 98 04/23/19 22:50 73 14 122/72 100 04/23/19 22:45 97.7 F 73 14 110/71 99 04/23/19 20:39 86 184/71 04/23/19 20:32 91 H 201/158 04/23/19 18:06 97.5 F L 99 H 20 147/85 Intake and Output 04/23/19 04/24/19 04/24/19 22:59 06:59 14:59 Intake Total 1350 400 Output Total 200 150 Balance 1150 250 Intake: IV 1350 400 ANCEF/NS 1 GM/50 ML 1 gm 50 In 50 ml @ 100 mls/hr IV Q8H [facility] Rx#:[id number] Output: Urine 200 150 Uretheral ([place]) 150 Other: Weight 137.892 kg Estimated Blood Loss 500 - Exam Abdomen: Present: normal appearance, soft Uterus: Present: normal, firm, fundal height below umbilicus Extremities: Present: normal Incision: Present: normal, dry, intact, dressed - Labs Labs: Abnormal lab results 04/23/19 04/23/19 04/23/19 Range/Units 20:08 20:08 20:08 WBC 11.2 H (4.5-11.0) K/mm3 MCH 27 L (28-32) pg RDW 16.6 H (13.2-15.2) % Plt Count 531 H (140-440) K/mm3 Sodium 135 L (137-145) mmol/L Carbon Dioxide 20 L (22-30) mmol/L Glucose 61 L (65-100) mg/dL Hemoglobin A1c (4-6) % AST 76 H 75 H (5-40) units/L ALT 117 H 119 H (7-56) units/L Alkaline Phosphatase 142 H (35-129) units/L Albumin 3.2 L (3.9-5) g/dL 04/23/19 Range/Units 20:08 WBC (4.5-11.0) K/mm3 MCH (28-32) pg RDW (13.2-15.2) % Plt Count (140-440) K/mm3 Sodium (137-145) mmol/L Carbon Dioxide (22-30) mmol/L Glucose (65-100) mg/dL Hemoglobin A1c 7.9 H (4-6) % AST (5-40) units/L ALT (7-56) units/L Alkaline Phosphatase (35-129) units/L Albumin (3.9-5) g/dL Laboratory Tests 04/23/19 04/23/19 04/23/19 18:42 20:08 20:08 WBC 11.2 H RBC 3.76 Hgb 10.1 Hct 31.6 MCV 84 MCH 27 L MCHC 32 RDW 16.6 H Plt Count 531 H Lymph % (Auto) 29.4 [place] % (Auto) 4.8 Eos % (Auto) 2.2 Baso % (Auto) 0.5 Lymph # 3.3 [place] # 0.5 Eos # 0.3 Baso # 0.1 Seg Neutrophils % 63.1 Seg Neutrophils # 7.1 Sodium Potassium Chloride Carbon Dioxide Anion Gap BUN Creatinine Estimated GFR BUN/Creatinine Ratio Glucose POC Glucose Hemoglobin A1c Uric Acid Calcium Total Bilirubin AST ALT Alkaline Phosphatase Lactate Dehydrogenase Total Protein Albumin Albumin/Globulin Ratio Urine Color Yellow Urine Turbidity Clear Urine pH 7.0 Ur Specific [place] 1.013 Urine Protein <15 mg/dl Urine Glucose (UA) Neg Urine Ketones Neg Urine Blood Sm Urine Nitrite Neg Urine Bilirubin Neg Urine Urobilinogen < 2.0 Ur Leukocyte Esterase Neg Urine WBC (Auto) 1.0 Urine RBC (Auto) 4.0 U Epithel Cells (Auto) 4.0 Blood Type A POSITIVE Antibody Screen Negative 04/23/19 04/23/19 04/23/19 20:08 20:08 20:08 WBC RBC Hgb Hct MCV MCH MCHC RDW Plt Count Lymph % (Auto) [place] % (Auto) Eos % (Auto) Baso % (Auto) Lymph # [place] # Eos # Baso # Seg Neutrophils % Seg Neutrophils # Sodium 135 L Potassium 4.5 Chloride 101.2 Carbon Dioxide 20 L Anion Gap 18 BUN 12 Creatinine 0.9 0.9 Estimated GFR > 60 > 60 BUN/Creatinine Ratio 13 Glucose 61 L POC Glucose Hemoglobin A1c 7.9 H Uric Acid 6.0 Calcium 9.0 Total Bilirubin < 0.20 AST 76 H 75 H ALT 117 H 119 H Alkaline Phosphatase 142 H Lactate Dehydrogenase 156 Total Protein 7.2 Albumin 3.2 L Albumin/Globulin Ratio 0.8 Urine Color Urine Turbidity Urine pH Ur Specific [place] Urine Protein Urine Glucose (UA) Urine Ketones Urine Blood Urine Nitrite Urine Bilirubin Urine Urobilinogen Ur Leukocyte Esterase Urine WBC (Auto) Urine RBC (Auto) U Epithel Cells (Auto) Blood Type Antibody Screen 04/24/19 04/24/19 04/24/19 06:39 10:14 10:14 WBC RBC Hgb 7.6 L Hct 21.8 L D MCV MCH MCHC RDW Plt Count Lymph % (Auto) [place] % (Auto) Eos % (Auto) Baso % (Auto) Lymph # [place] # Eos # Baso # Seg Neutrophils % Seg Neutrophils # Sodium Potassium Chloride Carbon Dioxide Anion Gap BUN Creatinine Estimated GFR BUN/Creatinine Ratio Glucose POC Glucose 80 Hemoglobin A1c Uric Acid Calcium Total Bilirubin AST 84 H ALT 105 H Alkaline Phosphatase Lactate Dehydrogenase Total Protein Albumin Albumin/Globulin Ratio Urine Color Urine Turbidity Urine pH Ur Specific [place] Urine Protein Urine Glucose (UA) Urine Ketones Urine Blood Urine Nitrite Urine Bilirubin Urine Urobilinogen Ur Leukocyte Esterase Urine WBC (Auto) Urine RBC (Auto) U Epithel Cells (Auto) Blood Type Antibody Screen
[2019-04-24] MEDS: FEOSOL PO SCH (09:33)
[2019-04-24] MEDS: PRENATAL VITAMIN PO SCH (09:33)
[2019-04-24 10:43] LABS: Hematocrit 21.8 % (30.3-42.9); Hemoglobin 7.6 gm/dl (10.1-14.3)
[2019-04-24 11:03] LABS: Alanine Aminotransferase 105 units/L (7-56)
[2019-04-24] MEDS: PERCOCET 5/325 PO PRN ×2 (14:53→21:31)
[2019-04-24] MEDS: NORMODYNE PO SCH (22:15)
[2019-04-25] MEDS: NORCO 5/325 PO PRN (02:44)
[2019-04-25] MEDS: HumuLIN R SUB-Q SCH ×4 (09:00→22:00)
--- NOTE | 2019-04-25 09:37 | Progress Note ---
Assessment and Plan - Patient Problems (1) 34 weeks gestation of Onset Date: 04/23/19 Current Visit: Yes Status: Resolved (2) Twin gestation with eighth Onset Date: 04/23/19 Current Visit: Yes Status: Resolved (3) Elevated liver enzymes Onset Date: 04/23/19 Current Visit: Yes Status: Chronic (4) Gestational diabetes mellitus Onset Date: 04/23/19 Current Visit: Yes Status: Chronic Qualifiers: Gestational diabetes mellitus control: diet-controlled Trimester: third trimester Qualified Code(s): O24.410 - Gestational diabetes mellitus in , diet controlled (5) induced hypertension Onset Date: 04/23/19 Current Visit: Yes Status: Resolved Qualifiers: Trimester: third trimester Qualified Code(s): O13.3 - Gestational [-induced] hypertension without significant proteinuria, third trimester (6) Previous section Onset Date: 04/23/19 Current Visit: Yes Status: Resolved (7) Status post Onset Date: 04/24/19 Current Visit: Yes Status: Resolved Plan to address problem: A: S/P Repeat C Section - POD #2 Doing well Asymptomatic anemia - stable PIH - improved GDM - stable Elevated LFT's - improving P: Anticipate discharge tomorrow. (8) Acute blood loss anemia Onset Date: 04/24/19 Current Visit: Yes Status: Resolved Subjective - Subjective Date of service: 04/25/19 Principal diagnosis: s/p Repeat C Section - POD #2 Interval history: Pt is feeling well without complaints, denies dizziness or SOB . She is tolerating a reg diet without nausea or vomiting, ambulating and voiding without difficulty. Patient reports: appetite normal, voiding normally, pain well controlled, flatus, ambulating normally, no dizzy ambulation, no nauseated : doing well, in NICU Objective - Vital Signs Latest vital signs: Vital Signs Temp Pulse Resp BP Pulse Ox 04/25/19 00:09 98.5 F 103 H 20 132/81 98 04/24/19 22:15 102 H 141/83 04/24/19 21:36 102 H 18 141/83 97 04/24/19 16:01 98.2 F 92 H 20 105/60 98 04/24/19 12:09 98.6 F 113 H 20 122/74 98 Intake and Output 04/24/19 04/25/19 04/25/19 22:59 06:59 14:59 Intake Total 480 Output Total 900 Balance -420 Intake: Oral 480 Output: Urine 900 Void 900 Other: Total, Intake Amount 240 Total, Output Amount 900 # Voids Void 1 1 - Exam Abdomen: Present: normal appearance, soft Uterus: Present: normal, firm, fundal height below umbilicus Extremities: Present: normal Incision: Present: normal, dry, intact - Labs Labs: Abnormal lab results 04/24/19 04/24/19 04/24/19 Range/Units 10:14 10:14 12:32 Hgb 7.6 L (10.1-14.3) gm/dl Hct 21.8 L D (30.3-42.9) % POC Glucose 191 H (70-105) AST 84 H (5-40) units/L ALT 105 H (7-56) units/L 04/24/19 04/24/19 Range/Units 17:59 21:59 Hgb (10.1-14.3) gm/dl Hct (30.3-42.9) % POC Glucose 166 H 151 H (70-105) AST (5-40) units/L ALT (7-56) units/L Laboratory Results - last 24 hr 04/24/19 04/25/19 04/25/19 21:59 09:11 12:03 Hgb 8.4 L Hct 25.8 L POC Glucose 151 H 75 AST ALT 04/25/19 04/25/19 04/25/19 12:03 12:13 18:54 Hgb Hct POC Glucose 99 131 H AST 58 H ALT 92 H
[2019-04-25] MEDS: NORMODYNE PO SCH ×2 (11:52→22:00)
[2019-04-25] MEDS: FEOSOL PO SCH (11:52)
[2019-04-25] MEDS: PRENATAL VITAMIN PO SCH (11:52)
[2019-04-25 12:47] LABS: Hematocrit 25.8 % (30.3-42.9); Hemoglobin 8.4 gm/dl (10.1-14.3)
[2019-04-25 13:14] LABS: Alanine Aminotransferase 92 units/L (7-56)
[2019-04-25] MEDS: PERCOCET 5/325 PO PRN (14:25)
[2019-04-26] MEDS: NORCO 5/325 PO PRN (00:20)
[2019-04-26 08:49] VITALS: BP 144/85
--- NOTE | 2019-04-26 10:23 | Discharge Summary ---
Providers - Providers Date of Admission: 04/23/19 17:19 Date of discharge: 04/26/19 Attending physician: ECTOR RUSSO Primary care physician: ECTOR RUSSO Hospitalization Reason for admission: IUP - , section, other (IUP @ 34 4/7 weeks; Twin gestation; PIH; GDM) Delivery: Procedure: section, repeat low transverse Incision: normal, dry, intact Other procedures: none complications: none Discharge diagnosis: delivery [place] baby: twins Hospital course: Pt is a 38yo BF EDC 05/31/19; EGA 34 4/7 weeks Twin gestation (mono/Di) who presented from [facility] for delivery due to Gestational hypertension with superimposed preeclampsia. She received care at [facility] since 18 weeks and co-managed by [facility] for Twin gestation, PIH, GDM, Elevated LFT's and previous C Section x 3. She was admitted and underwent an uncomplicated Repeat C Section and tolerated the procedure well. By POD #2 she was tolerating a reg diet without nausea or vomiting, ambulating and voiding without difficulty. Her blood sugars were well controlled on diet only and BP's on Labetolol. She was therefore discharged to home on POD #3 in stable condition. Condition at discharge: Good Disposition: DC-01 TO HOME OR SELFCARE - Discharge Diagnoses (1) 34 weeks gestation of Status: Resolved (2) Twin gestation with eighth Status: Resolved (3) Elevated liver enzymes Status: Resolved (4) Gestational diabetes mellitus Status: Resolved Qualifiers: Gestational diabetes mellitus control: diet-controlled Trimester: third trimester Qualified Code(s): O24.410 - Gestational diabetes mellitus in , diet controlled (5) induced hypertension Status: Resolved Qualifiers: Trimester: third trimester Qualified Code(s): O13.3 - Gestational [-induced] hypertension without significant proteinuria, third trimester (6) Previous section Status: Resolved (7) Status post Status: Resolved (8) Acute blood loss anemia Status: Resolved Plan - Discharge Medications Prescriptions: Ferrous Sulfate [Feosol 325 MG tab] 325 mg PO BID #60 tablet Labetalol [Labetalol 100mg TAB] 100 mg PO BID #60 tablet Ibuprofen [Motrin 800 MG tab] 800 mg PO Q6H PRN #30 tablet PRN Reason: Pain, Mild (1-3) HYDROcodone/APAP 5-325 [[place] 5-325 mg TAB] 1 each PO Q6HR PRN #30 tablet PRN Reason: Pain, Moderate (4-6) Vit-Fe Fumar-FA [ Vitamin] 1 each PO QDAY #30 tablet - Provider Discharge Summary Activity: routine, no sex for 6 weeks, no heavy lifting 4 weeks, no strenuous exercise Diet: routine Instructions: routine Additional instructions: [] Smoking cessation referral if applicable(refer to patient education folder for contact #) [] Refer to [facility] Booklet Call your doctor immediately for: * Fever > 100.5 * Heavy vaginal bleeding ( >1 pad per hour) * Severe persistent headache * Shortness of breath * Reddened, hot, painful area to leg or breast * Drainage or odor from incision. * Keep incision clean and dry at all times and follow doctor's instructions regarding bathing/showering - Follow up plan Follow up: ECTOR RUSSO MD [Primary Care Provider] - 14 Days
[2019-04-26] MEDS: FEOSOL PO SCH (10:43)
[2019-04-26] MEDS: PRENATAL VITAMIN PO SCH (10:43)
[2019-04-26] MEDS: NORMODYNE PO SCH (10:44)
[2019-04-26] MEDS: HumuLIN R SUB-Q SCH (11:59)
== END 2019-04-26 12:35 | disposition home or self-care (01) | DRG 765 ==
LOC: APU 17:19 → OB 04-24 00:21
PROVIDERS: ADMIT Obstetrics & Gynecology; ATTEND Obstetrics & Gynecology
PROC: 10D00Z1 Extraction of Products of Conception, Low, Open Approach (ICD-10-PCS; principal; 2019-04-23)
DX: O60.14X2 Preterm labor third trimester with preterm delivery third trimester, fetus 2 (principal); O14.94 Unspecified pre-eclampsia, complicating childbirth; O13.4 Gestational [pregnancy-induced] hypertension without significant proteinuria, complicating childbirth; D62 Acute posthemorrhagic anemia; O60.14X1 Preterm labor third trimester with preterm delivery third trimester, fetus 1; O13.3 Gestational [pregnancy-induced] hypertension without significant proteinuria, third trimester; O99.214 Obesity complicating childbirth; E66.01 Morbid (severe) obesity due to excess calories; O24.420 Gestational diabetes mellitus in childbirth, diet controlled; O30.043 Twin pregnancy, dichorionic/diamniotic, third trimester; O34.211 Maternal care for low transverse scar from previous cesarean delivery; Z3A.34 34 weeks gestation of pregnancy; Z37.2 Twins, both liveborn; O90.81 Anemia of the puerperium
CPT/HCPCS: 36415; 80053; 81001; 82239; 82565; 82962; 83036; 83615; 83735; 84450; 84460; 84550; 85014; 85018; 85025; 86592; 86850; 86900; 86901; 87086; 87116; 87806; 88307; 96361; 96365; 96366; 96372; 99406; G0378; C9250; J0290; J0690; J0702; J1170; J1815; J1885; J2405; J2590; J3010; J3475; J7120; J7121

== ENCOUNTER 2019-05-27 11:04 | Day surgery (SDC) | payer MEDICAID ==
[2019-05-27] MEDS ORDERED: DILAUDID IV PRN (11:06)
--- NOTE | 2019-05-27 11:15 | Short Stay Summary ---
Short Stay Documentation Date of service: 05/27/19 Narrative H&P: Pt is a 38yo BF LMP presents for permanent sterilization. - History Principal diagnosis: Desires permanent sterilization H&P: obtained from office Past Medical History: diabetes (GDM) Past Surgical History: Social history: no significant social history, - Allergies and Medications Current Medications: Allergies No Known Allergies Allergy (Verified 05/22/19 10:09) Home Medications Medication Instructions Recorded Confirmed Last Taken Type ALBUTEROL Inhaler (OR & NICU) 2 puff IH QID PRN #1 inhalation 05/23/14 05/22/19 Unknown Rx [ProAir HFA Inhaler] Vit-Fe Fumar-FA [ 1 each PO QDAY #30 tablet 04/26/19 05/22/19 Unknown Rx Vitamin] Active Medications Celecoxib (Celebrex) 200 mg PO PREOP NR Gabapentin (Neurontin) 300 mg PO PREOP NR Hydromorphone HCl (Dilaudid) 0.5 mg IV Q10MIN PRN PRN Reason: Pain , Severe (7-10) Lactated Ringer's (Lactated Ringers) 1,000 mls @ 100 mls/hr IV DIRECT KAREN Cefazolin Sodium (Ancef/Sterile Water 2 Gm/20 Ml) 2 gm in 20 mls @ 80 mls/hr IV PREOP NR; Protocol Midazolam HCl (Versed) 2 mg IV PREOP NR Stop: 05/27/19 23:59 Scopolamine (Transderm-Scop) 1 each TD PREOP NR - Physical exam General appearance: no acute distress Integumentary: no rash HEENT: Atraumatic Lungs: Clear to auscultation Breasts: normal Heart: Regular rate Gastrointestinal: normal Female Genitourinary: deferred Rectal Exam: deferred Extremities: no ischemia, No edema Neurological: Normal gait, Normal speech - Brief post op/procedure progress note Date of procedure: 05/27/19 Pre-op diagnosis: Desires permanent sterilization Post-op diagnosis: same Procedure: Laparoscopic bilateral tubal ligation Anesthesia: GETA Findings: Enlarged uterus with adhesions to the anterior abdominal wall. Normal tubes and ovaries bilaterally. Surgeon: ECTOR RUSSO Estimated blood loss: minimal Pathology: none Condition: stable - Hospital course Hospital course: Unremarkable. - Disposition Condition at discharge: Good Disposition: DC-01 TO HOME OR SELFCARE - Discharge Diagnoses (1) Encounter for sterilization Status: Resolved Short Stay Discharge Plan Activity: no restrictions Diet: regular Wound: open to air, keep clean and dry Follow up with: ECTOR RUSSO MD [Primary Care Provider] - 14 Days Prescriptions: HYDROcodone/APAP 5-325 [[place] 5/325] 1 each PO Q6HR PRN #20 tablet PRN Reason: Pain
[2019-05-27] MEDS ORDERED: MARCAINE 0.5% INFILTRATI ONE ×2 (11:39→13:04)
[2019-05-27 11:57] LABS: Hematocrit 30.8 % (30.3-42.9); Hemoglobin 9.7 gm/dl (10.1-14.3)
[2019-05-27] MEDS ORDERED: ANCEF/STERILE WATER 2 GM/20 ML 2 GM/20 ML SYRINGE IV NR (12:00)
[2019-05-27] MEDS ORDERED: VERSED IV NR (12:00)
[2019-05-27] MEDS ORDERED: LACTATED RINGERS 1,000 ML IV SCH (12:00)
[2019-05-27] MEDS ORDERED: NEURONTIN PO NR (12:00)
[2019-05-27] MEDS ORDERED: TRANSDERM-SCOP TD NR (12:00)
[2019-05-27] MEDS ORDERED: ZOFRAN IV PRN (12:07)
--- NOTE | 2019-05-27 12:07 | Anesthesia Consultation ---
Anesthesia Consult and Med Hx Date of service: 05/27/19 - Airway Anesthetic Teeth Evaluation: Good ROM Head & Neck: Adequate Mental/Hyoid Distance: Adequate Mallampati Class: Class II Intubation Access Assessment: Good - Pulmonary Exam CTA: Yes - Cardiac Exam Cardiac Exam: RRR - Pre-Operative Health Status ASA Pre-Surgery Classification: ASA2 Proposed Anesthetic Plan: General - Pulmonary Hx Smoking: Yes (Former) Hx Asthma: Yes (Has never used inhaler) COPD: No Hx Pneumonia: No - Cardiovascular System Hx Hypertension: Yes - Central Nervous System Hx Seizures: No Hx Psychiatric Problems: No - Endocrine Hx Renal Disease: No Hx End Stage Renal Disease: No Hx Hypothyroidism: No Hx Hyperthyroidism: No - Hematic Hx Anemia: No Hx Sickle Cell Disease: No - Other Systems Hx Alcohol Use: Yes (Occas) Hx Cancer: No
--- NOTE | 2019-05-27 12:07 | Anesthesia Day of Surgery ---
Anesthesia Day of Surgery - Day of Surgery Patient Examined: Yes Patient H&P Reviewed: Yes Patient is NPO: Yes
[2019-05-27] MEDS ORDERED: SUBLIMAZE ONE (12:19)
[2019-05-27] MEDS ORDERED: XYLOCAINE MPF 2% ONE (12:19)
[2019-05-27] MEDS ORDERED: ZEMURON IV ONE (12:19)
[2019-05-27] MEDS ORDERED: DIPRIVAN 10 MG/ML IV ONE (12:19)
[2019-05-27] MEDS ORDERED: ROBINUL ONE (13:16)
[2019-05-27] MEDS ORDERED: DECADRON ONE (13:16)
[2019-05-27] MEDS ORDERED: ZOFRAN ONE (13:16)
[2019-05-27] MEDS ORDERED: BRIDION IV ONE (13:16)
[2019-05-27] MEDS ORDERED: BLOXIVERZ ONE (13:16)
--- NOTE | 2019-05-27 13:33 | Operative Report ---
Operative Report Operative Report: PREOPERATIVE DIAGNOSIS: Desires permanent sterilization POSTOPERATIVE DIAGNOSIS: Same OPERATIVE PROCEDURE: Laparoscopic bilateral tubal ligation. SURGEON: Ruperto Conde MD ANESTHESIA: Gen. endotracheal intubation ANESTHESIOLOGIST: Dr. Shaffer ESTIMATED BLOOD LOSS: Minimal FINDINGS: An enlarged uterus with multiple omental adhesions. Normal tubes and ovaries bilaterally. COMPLICATIONS: None COUNTS: Correct x3. PROCEDURE: After the patient was correctly identified and after general anesthesia was administered, the patient was prepped and draped in usual sterile fashion and placed in dorsal lithotomy position. First, the bladder was emptied using a straight catheter. Next, a speculum was placed in the vaginal vault and the anterior lip of the cervix was grasped using a single-tooth tenaculum. The uterine manipulator was then placed and the tenaculum and speculum were removed. Attention was then turned to the abdomen where first a periumbilical incision was made using a skin knife, and the Optiview trocar was inserted under direct visualization. After an adequate amount of abdominal insufflation, visualization of the pelvic organs found the uterus to be enlarged with multiple omental adhesions, and the tubes and ovaries to be normal bilaterally. Next, the left fallopian tube was grasped using the Kleppingers, and after identifying the fimbriated end of the left tube, this tube was cauterized in 3 continuous [address] along the proximal portion of the left tube. The same procedure was performed on the right fallopian tube after first identifying the fimbriated end of the right tube. This tube was also cauterized in 3 continuous places along the proximal portion of the right tube. At this point, the procedure was then considered complete. All instruments were removed from the abdomen. The abdomen was deflated and the periumbilical incision was closed using 0 Vicryl suture in a [id number] configuration on the fascia, followed by 4-0 Monocryl suture in sub-cuticular fashion on the skin. The incision was also infiltrated using 0.5% Marcaine solution. The uterine manipulator was removed. The patient tolerated the procedure well and was transferred to recovery room stable condition.
[2019-05-27 13:50] VITALS: BP 144/88
--- NOTE | 2019-05-27 16:16 | Post Anesthesia Evaluation ---
- Post Anesthesia Evaluation Patient Participated: Yes Airway Patent: Yes Stable Respiratory Function: Yes Nausea/Vomiting: No Temp > 96.8F: Yes Pain Manageable: Yes Adequeate Hydration: Yes Anesthesia Complications: No
== END 2019-05-27 11:05 | disposition home or self-care (01) ==
LOC: OR 11:04
PROVIDERS: ATTEND Obstetrics & Gynecology
DX: Z30.2 Encounter for sterilization (principal); I10 Essential (primary) hypertension; J45.909 Unspecified asthma, uncomplicated; Z79.899 Other long term (current) drug therapy; Z87.891 Personal history of nicotine dependence; Z87.440 Personal history of urinary (tract) infections; Z98.891 History of uterine scar from previous surgery; Z72.89 Other problems related to lifestyle; Z98.890 Other specified postprocedural states; Z80.8 Family history of malignant neoplasm of other organs or systems; Z82.49 Family history of ischemic heart disease and other diseases of the circulatory system
CPT/HCPCS: 36415; 58670; 81025; 85014; 85018; J0690; J1100; J2250; J2405; J2704; J2710; J3010; J7120